=== PATIENT | male | born 1985 | race Caucasian/White ===

== ENCOUNTER 2017-12-06 12:55 | Outpatient (REF) | payer MEDICAID, SELFPAY ==
[2017-12-06 20:44] LABS: Abs Immature Grans 0.11 k/cumm (0.0-0.09); Absolute Basophil Count 0.07 k/cumm (0.0-0.2); Absolute Eosinophil Count 0.69 k/cumm (0.0-0.7); Absolute Lymphocyte Count 3.21 k/cumm (1.2-3.4); Absolute Monocyte Count 1.04 k/cumm (0.11-0.7); Basophils % 0.5; Eosinophils % 5.3; HCT 48.9 % (40.0-50.0); HGB 16.4 g/dL (13.5-17.5); Immature Grans % 0.8; Lymphocytes % 24.5; Mean Corp. HGB Concentration 33.5 g/dL (32.0-36.0); Mean Corpuscular Hemoglobin 28.1 pg (27.0-33.0); Mean Corpuscular Volume 83.9 fL (80-95); Mean Platelet Volume 11.3 fL (8.0-11.0); Monocytes % 7.9; Platelet Count 266 x1000/uL (130-400); RBC 5.83 m/cumm (4.50-6.00); RBC Distribution Width 14.1 % (11.8-14.1); White Blood Cell Count 13.11 k/cumm (4.4-10.8)
[2017-12-06 21:01] LABS: Hemoglobin A1C 5.8 % (4.5-6.2)
[2017-12-06 22:03] LABS: ALT 69 U/L (12-78); AST 26 U/L (15-37); Alkaline Phosphatase 80 U/L (46-116); Anion Gap 11.2 mmol/L (3-11); BUN 11 mg/dL (7-18); Bilirubin, Total 0.3 mg/dL (0.2-1.0); CO2 26.8 mmol/L (21.0-32.0); CREATININE 0.89 mg/dL (0.70-1.30); Chloride 101 mmol/L (98-107); Cholesterol 223 mg/dL (50-200); Glucose 92 mg/dL (70-100); HDL Cholesterol 39 mg/dL (40-60); LDL CHOLESTEROL 156 mg/dL (<100); Potassium 4.5 mmol/L (3.5-5.1); Sodium 139 mmol/L (136-145); TSH (W/Ref FT4) 2.74 uIU/mL (0.358-3.74); Total Protein 7.6 g/dL (6.4-8.2); Triglyceride 226 mg/dL (30-150)
== END 2017-12-06 13:15 ==
LOC: NCHCN 12:55
PROVIDERS: PCP Nurse Practitioner Family; Visit Provider Nurse Practitioner Family
DX: Z00.00 Encounter for general adult medical examination without abnormal findings (principal); Z13.29 Encounter for screening for other suspected endocrine disorder; Z13.0 Encounter for screening for diseases of the blood and blood-forming organs and certain disorders involving the immune mechanism; Z13.1 Encounter for screening for diabetes mellitus; Z13.228 Encounter for screening for other metabolic disorders; Z13.220 Encounter for screening for lipoid disorders
CPT/HCPCS: 80053; 80061; 83721; 83036; 84443; 85025

== ENCOUNTER 2018-01-23 11:02 | Outpatient (REF) | payer MEDICARE, MEDICAID, SELFPAY ==
[2018-01-23 21:18] LABS: Abs Immature Grans 0.08 k/cumm (0.0-0.09); Absolute Basophil Count 0.07 k/cumm (0.0-0.2); Absolute Eosinophil Count 0.75 k/cumm (0.0-0.7); Absolute Lymphocyte Count 3.73 k/cumm (1.2-3.4); Absolute Monocyte Count 0.97 k/cumm (0.11-0.7); Basophils % 0.5; Eosinophils % 5.2; HCT 49.9 % (40.0-50.0); HGB 16.7 g/dL (13.5-17.5); Immature Grans % 0.6; Lymphocytes % 25.9; Mean Corp. HGB Concentration 33.5 g/dL (32.0-36.0); Mean Corpuscular Hemoglobin 28.1 pg (27.0-33.0); Mean Platelet Volume 11.6 fL (8.0-11.0); Monocytes % 6.7; Neutrophils % 61.1; Platelet Count 279 x1000/uL (130-400); RBC 5.94 m/cumm (4.50-6.00); RBC Distribution Width 14.6 % (11.8-14.1); White Blood Cell Count 14.42 k/cumm (4.4-10.8)
[2018-01-23 21:19] LABS: Absolute Neutrophil Count 8.81 k/cumm (1.2-6.7)
== END 2018-01-23 11:22 ==
LOC: NCHCN 11:02
PROVIDERS: PCP Nurse Practitioner Family; Visit Provider Nurse Practitioner Family
DX: D72.829 Elevated white blood cell count, unspecified (principal)
CPT/HCPCS: 85025

== ENCOUNTER 2018-11-05 12:31 | Outpatient (REF) | payer MEDICARE, MEDICAID, SELFPAY ==
[2018-11-05 22:52] LABS: Calculated LDL 180 mg/dL; Cholesterol 272 mg/dL (50-200); HDL Cholesterol 47 mg/dL (40-60); Triglyceride 228 mg/dL (30-150)
[2018-11-05 22:54] LABS: Hemoglobin A1C 5.8 % (4.5-6.2)
[2018-11-07 10:36] LABS: Hepatitis C Ab w Rflx HCV PCR Negative (NEGAT)
== END 2018-11-05 12:51 ==
LOC: NCHCN 12:31
PROVIDERS: PCP Nurse Practitioner Family; Visit Provider Family Medicine
DX: E78.5 Hyperlipidemia, unspecified (principal); R73.03 Prediabetes; L81.8 Other specified disorders of pigmentation; Z11.59 Encounter for screening for other viral diseases
CPT/HCPCS: 80061; 86803; 83036